=== PATIENT | male | born 1985 | race Caucasian/White ===

== ENCOUNTER 2017-04-27 12:12 | Inpatient (IN) | payer OTHER ==
[~2017-04-27] VITALS: Ht 180.3 cm; Wt 111.0 kg
[2017-04-27] VITALS (10 sets, daily range): BP systolic 122–145; BP diastolic 55–101
[~2017-04-27 12:12] MED LIST: ASPI-1265 PO; MARIJUANA; VANCOMYCIN INJ 1000 MG in NORMAL SALINE 250ml IV.SOLN IV ONE; ceFAZolin/D5W- 1GM premix 50 ML IV ONE; famotidine 20mg tablet PO ONE; ringers solution, lacted 1,000 ML IV SCH
[2017-04-27] MEDS ORDERED: BUPIVAcaine/PF 2.5 mg/ml (0.25%) 30ml vial ONE (14:09)
[2017-04-27 14:14] LABS: BASOPHILS # (AUTO) 0.1 X10'3 (0-0.2); BASOPHILS % (AUTO) 1.1 % (0-1); EOSINOPHILS # (AUTO) 0.6 X10'3 (0-0.9); EOSINOPHILS % (AUTO) 9.9 % (0-6); LYMPHOCYTES # (AUTO) 2.1 X10'3 (1.1-4.8); LYMPHOCYTES % (AUTO) 32.5 % (21-51); MEAN CORPUSCULAR HEMOGLOBIN 30.9 PG (27.0-31.0); MEAN CORPUSCULAR HGB CONC 33.9 % (33.0-36.5); MEAN CORPUSCULAR VOLUME 91.3 FL (78-98); MONOCYTES # (AUTO) 0.4 X10'3 (0-0.9); MONOCYTES % (AUTO) 6.4 % (2-12); NEUTROPHILS # (AUTO) 3.2 X10'3 (1.8-7.7); NEUTROPHILS % (AUTO) 50.1 % (42-75); PRE OP HEMATOCRIT 45.3 % (42.0-52.0); PRE OP HEMOGLOBIN 15.3 g/dL (14.0-17.9); PRE OP PLATELET COUNT 230 X10'3 (140-440); RED BLOOD COUNT 4.95 X10'6 (4.70-6.10); RED CELL DISTRIBUTION WIDTH 12.9 % (11.5-14.5)
[2017-04-27 14:31] LABS: ALBUMIN 4.1 G/DL (3.4-5.0); ALBUMIN/GLOBULIN RATIO 1.1 (1.1-1.5); ALKALINE PHOSPHATASE 91 IU/L (46-116); BLOOD UREA NITROGEN 9 MG/DL (7-18); CALCIUM 9.2 MG/DL (8.5-10.1); CHLORIDE 103 MMOL/L (99-107); PRE OP ALT 33 U/L (30-65); PRE OP ANION GAP 6 (8-16); PRE OP AST 17 U/L (10-37); PRE OP BILIRUB, TOTAL 1.1 MG/DL (0.0-1.0); PRE OP GLUCOSE 86 MG/DL (70-104); PRE OP POTASSIUM 4.1 MMOL/L (3.4-5.1); PRE OP SODIUM 139 MMOL/L (135-145); TOTAL CARBON DIOXIDE 30.3 MMOL/L (24-32); TOTAL PROTEIN 7.7 G/DL (6.4-8.2); eGFR > 90 ML/MIN
[2017-04-27] MEDS ORDERED: vancomycin 1,000mg inj ONE (14:38)
[2017-04-27] MEDS ORDERED: sevoflurane 250ml liquid IH ONE (15:55)
[2017-04-27] MEDS ORDERED: ondansetron/PF 4mg/2ml inj ONE (15:55)
[2017-04-27] MEDS ORDERED: fentaNYL/PF 50MCG/1 ML 2ML syringe ONE ×2 (15:57→16:25)
[2017-04-27] MEDS ORDERED: midazolam 2 mg/2 ml injection ONE (15:57)
[2017-04-27] MEDS ORDERED: LIDOcaine 2% (20mg/ml) 5ml vial ONE (15:57)
[2017-04-27] MEDS ORDERED: propofol inj 20 ML IV ONE (15:57)
[2017-04-27] MEDS ORDERED: dexamethasone sod phosphate 4mg/ml inj. ONE (16:31)
[2017-04-27] MEDS ORDERED: HYDROmorphone 1 mg/ml syringe IV PRN (17:15)
[2017-04-27] MEDS ORDERED: ondansetron/PF 4mg/2ml inj IV PRN (17:15)
[2017-04-27] MEDS ORDERED: proCHLORperazine 10 MG/2 ml inj IV PRN (17:15)
[2017-04-27] MEDS ORDERED: ringers solution, lacted 1,000 ML IV SCH (17:15)
[2017-04-27] MEDS ORDERED: fentaNYL/PF 50MCG/1 ML 2ML syringe IV PRN (17:15)
[2017-04-27] MEDS ORDERED: HYDROmorphone inj. 0.5 MG/0.5 ML DISP.SYRIN ONE (17:32)
== END 2017-04-27 18:24 | disposition home or self-care (01) | DRG 903 ==
LOC: PAS IN 12:12 → EDSTATUS 15:00
PROVIDERS: ADMIT Orthopaedic Surgery; ATTEND Orthopaedic Surgery
PROC: 0JBD0ZZ Excision of Right Upper Arm Subcutaneous Tissue and Fascia, Open Approach (ICD-10-PCS; principal; 2017-04-27 15:55)
DX: T81.31XA Disruption of external operation (surgical) wound, not elsewhere classified, initial encounter (principal); S42.491D Other displaced fracture of lower end of right humerus, subsequent encounter for fracture with routine healing; S63.29 Dislocation of distal interphalangeal joint of finger; Y83.8 Other surgical procedures as the cause of abnormal reaction of the patient, or of later complication, without mention of misadventure at the time of the procedure; Y92.89 Other specified places as the place of occurrence of the external cause; Z79.899 Other long term (current) drug therapy
CPT/HCPCS: 36415; 80053; 85025; A6223; A6253; A6449; A7000; J0690; J1100; J1170; J2001; J2250; J2405; J2704; J3010; J3370; J3490; J7120